=== PATIENT | male | born 1935 | race Caucasian/White ===

== ENCOUNTER 2017-07-30 11:09 | Observation (INO) | payer MEDICARE, OTHER ==
[2017-07-28 14:08] VITALS: BP 147/74
[2017-07-28 14:40] LABS: BASOPHILS # (AUTO) 0.02 x10^3/uL (0-0.1); BASOPHILS % (AUTO) 0 % (0-1); EOSINOPHILS # (AUTO) 0.27 x10^3/uL (0-0.4); EOSINOPHILS % (AUTO) 4 % (1-7); LYMPHOCYTES # (AUTO) 1.24 x10^3/uL (1-3.4); LYMPHOCYTES % (AUTO) 19 % (22-44); MD NO; MONOCYTES # (AUTO) 0.68 x10^3/uL (0.2-0.8); MONOCYTES % (AUTO) 10 % (2-9); NEUTROPHILS # (AUTO) 4.43 x10^3/uL (1.8-6.8); NEUTROPHILS % (AUTO) 67 % (42-75); PLATELET COUNT 239 x10^3/uL (130-400); RED BLOOD COUNT 5.06 x10^6/uL (4.38-5.82); RED CELL DISTRIBUTION WIDTH 13.7 % (9.4-14.8)
[2017-07-28 14:46] LABS: MICROSCOPIC NOT IND
[2017-07-28 14:51] LABS: CULTURE INDICATED? NO
[2017-07-28 14:53] LABS: ALANINE AMINOTRANSFERASE 19 U/L (12-78); ALBUMIN 3.9 g/dL (3.4-5.0); ANION GAP 6 mmol/L (5-15); CALCIUM 8.8 mg/dL (8.5-10.1); CHLORIDE 101 mmol/L (98-107); CREATININE 1.38 mg/dL (0.7-1.3)
[2017-07-28 14:55] LABS: ALKALINE PHOSPHATASE 48 U/L (45-117); BILIRUBIN,TOTAL 0.5 mg/dL (0.2-1.0); TOTAL PROTEIN 7.2 g/dL (6.4-8.2)
[~2017-07-30] VITALS: Ht 172.7 cm; Wt 70.6 kg
[~2017-07-30 11:09] MED LIST: ASPI-496 PO; CLOP75TA PO; CLOP75TA52 PO; DUTA0.5C PO; EZET10TA18 PO; HYDR12.58 PO; LISI-170 PO; LISI1TAB7 PO; PROPOFOL 10 MG/ML, 20ML ONE; PROPOFOL 10 MG/ML, 50ML ONE
[2017-07-30] MEDS ORDERED: LACTATED RINGERS 1,000 ML IV SCH (12:03)
[2017-07-30] MEDS ORDERED: LIDOCAINE 1%, 50ML ONE (13:08)
[2017-07-30] MEDS ORDERED: PAPAVERINE 30 MG/ML, 2ML ONE (13:08)
[2017-07-30] MEDS ORDERED: HEPARIN 1,000 UNITS/ML, 10ML ONE (13:09)
[2017-07-30] MEDS ORDERED: THROMBIN 5,000 UNIT VIAL TP ONE ×2 (13:09→15:42)
[2017-07-30] MEDS ORDERED: PROTAMINE SULFATE 10 MG/ML, 5ML ONE (13:09)
[2017-07-30] MEDS ORDERED: BACITRACIN 50,000 UNIT ONE (13:17)
[2017-07-30] MEDS ORDERED: BUPIVACAINE/PF 0.5% ONE (13:17)
[2017-07-30] MEDS ORDERED: EPINEPHRINE 1 MG/ML, 1ML ONE (13:17)
[2017-07-30] MEDS ORDERED: NITROPRUSSIDE 25 MG/ML, 2ML ONE (13:17)
[2017-07-30] MEDS ORDERED: FENTANYL PF 250 MCG/5ML ONE ×2 (13:41→16:28)
[2017-07-30] MEDS ORDERED: DEXAMETHASONE 4 MG/ML, 1ML ONE (14:24)
[2017-07-30] MEDS ORDERED: PROPOFOL 10 MG/ML, 20ML ONE (14:24)
[2017-07-30] MEDS ORDERED: SUCCINYLCHOLINE 20 MG/ML, 10ML ONE (14:24)
[2017-07-30] MEDS ORDERED: ONDANSETRON 2MG/ML, 2ML ONE (14:24)
[2017-07-30] MEDS ORDERED: ROCURONIUM 10 MG/ML,10ML ONE (14:24)
[2017-07-30] MEDS ORDERED: LABETALOL 5MG/ML 40ML VIAL IVPush PRN (17:30)
[2017-07-30] MEDS ORDERED: HYDROcodone/APAP 5/325 TABLET PO PRN (17:30)
[2017-07-30] MEDS ORDERED: FENTANYL PF 100 MCG/2ML IV PRN (18:00)
[2017-07-30] MEDS ORDERED: METOPROLOL 1 MG/ML, 5ML IV PRN (18:00)
[2017-07-30] MEDS ORDERED: LABETALOL 5MG/ML, 20ML IV PRN (18:00)
[2017-07-30] MEDS ORDERED: ONDANSETRON 2MG/ML, 2ML IVPush PRN (18:00)
[2017-07-30] MEDS ORDERED: OXYcodone 5 MG/5 ML ORAL.SOL UDC PO PRN (18:00)
[2017-07-30] MEDS ORDERED: ACETAMINOPHEN 325 MG TABLET PO PRN (18:00)
[2017-07-30] MEDS ORDERED: hydrALAzine 20 MG/ML, 1ML IV PRN (18:00)
[2017-07-30] MEDS ORDERED: ALBUTEROL SULFATE 2.5 MG/3 ML NPPB PRN (18:00)
[2017-07-30] MEDS ORDERED: D5%-LACTATED RINGERS 1,000 ML IV SCH (20:00)
[2017-07-30] MEDS ORDERED: EZETIMIBE 10 MG TABLET PO SCH (21:00)
[2017-07-30 23:20] VITALS: BP 110/56
[2017-07-31 04:02] VITALS: BP 98/46
[2017-07-31 07:28] VITALS: BP 128/58
[2017-07-31] MEDS ORDERED: DUTASTERIDE 0.5 MG CAPSULE PO SCH (09:00)
[2017-07-31] MEDS ORDERED: CLOPIDOGREL 75 MG TABLET PO SCH (09:00)
[2017-07-31] MEDS ORDERED: ASPIRIN 81 MG TABLET EC PO SCH (09:00)
== END 2017-07-31 10:33 | disposition home or self-care (01) ==
LOC: ORIP 11:09 → INTOOBSV 11:09 → 4NOR 19:47 → DCLOUNGE 07-31 10:20
DX: I65.23 Occlusion and stenosis of bilateral carotid arteries (principal); E78.00 Pure hypercholesterolemia, unspecified; Z85.818 Personal history of malignant neoplasm of other sites of lip, oral cavity, and pharynx
CPT/HCPCS: 35301; 36415; 80053; 81003; 85025; 86850; 86900; 93005; C1729; C1781; G0378; J0171; J0330; J1100; J1644; J2405; J2704; J2720; J3010; J3490; J7120; J2440; J7121